=== PATIENT | female | born 1970 | race Caucasian/White ===

== ENCOUNTER → 2017-08-08 | Outpatient (CLI) | payer BC | END | disposition home or self-care (01) | LOC: KCIC MAMMO 16:15 | DX: Z12.31 Encounter for screening mammogram for malignant neoplasm of breast (principal) | CPT/HCPCS: 77067 ==

== ENCOUNTER → 2017-08-18 | Outpatient (CLI) | payer BC | END | disposition home or self-care (01) | LOC: KCIC MAMMO 13:01 | DX: N64.89 Other specified disorders of breast (principal) | CPT/HCPCS: 76641; 77065 ==

== ENCOUNTER → 2018-06-14 | Outpatient (CLI) | payer BC ==
--- NOTE | 2018-06-14 16:48 | KCIC ---
EXAM: Cervical spine MRI without contrast. HISTORY: Neck pain. Headaches. TECHNIQUE: Multiplanar, multisequence magnetic resonance imaging of the cervical spine was performed without contrast. COMPARISON: None. FINDINGS: There is slight straightening of cervical lordosis. There is minimal anterolisthesis of C2 on C3 and C3 on C4 and C4 on C5, within physiologic limits. There is slight endplate remodeling and disc desiccation at the majority of the cervical vertebral levels. There is no acute or subacute fracture. There is no suspicious osseous lesion. No spinal cord lesion is seen. At C2-C3, there is mild left facet arthropathy. There is no stenosis. At C3-C4, there is endplate remodeling. There is mild bilateral facet arthropathy. There is minimal right foraminal stenosis. At C4-C5, there is endplate remodeling. There is mild bilateral facet arthropathy. There is uncovertebral arthropathy. There is minimal right foraminal stenosis. At C5-C6, there is endplate remodeling. There is mild facet arthropathy. There is no stenosis. At C6-C7, there is a minimal posterior central disc protrusion superimposed on endplate remodeling. There is mild bilateral facet arthropathy. There is no stenosis. IMPRESSION:Minimal to mild degenerative change involving the cervical spine, described in detail above. This results in suspected minimal right foraminal stenosis at C3-C4 and C4-C5. Electronically signed by: Taryn Gaines MD (06/14/2018 4:44 PM) [place] [id number]
== END | disposition home or self-care (01) ==
LOC: KCIC MRI 15:48
PROVIDERS: ATTEND Chiropractor
DX: M50.223 Other cervical disc displacement at C6-C7 level (principal); M48.02 Spinal stenosis, cervical region; M47.812 Spondylosis without myelopathy or radiculopathy, cervical region
CPT/HCPCS: 72141

== ENCOUNTER → 2018-09-14 | Outpatient (CLI) | payer BC ==
--- NOTE | 2018-09-14 16:58 | KCIC ---
BILATERAL SCREENING MAMMOGRAM, 3-D History: Routine screening. Comparison: Bilateral mammogram 08/08/2017 and dating back to 2016. Technique: MLO and CC digital tomosynthesis (3D) images obtained. Radiologist reviewed these images on dedicated workstation. Findings: Breast Tissue Density B : There are scattered areas of fibroglandular density. There are no dominant masses, suspicious microcalcifications, or architectural distortion. IMPRESSION: No mammographic evidence of malignancy. Recommend routine screening. BI-RADS category 1: Negative. The images were reviewed with computer-aided detection. Patient information is entered into reminder system with a target due date for the next screening mammogram. Mammography is the most sensitive method for finding small breast cancers, but it does not detect them all and is not a substitute for careful clinical examination. A negative mammogram does not negate a clinically suspicious finding and should not result in delay in biopsying a clinically suspicious abnormality. "Our facility is accredited by the [employer] Mammography [employer]." Electronically signed by: Esau Sanz MD (09/14/2018 4:55 PM) [id number]
== END | disposition home or self-care (01) ==
LOC: KCIC MAMMO 15:43
PROVIDERS: ATTEND Family Medicine
DX: Z12.31 Encounter for screening mammogram for malignant neoplasm of breast (principal)
CPT/HCPCS: 77063; 77067

== ENCOUNTER → 2020-01-09 | Outpatient (CLI) | payer BC ==
--- NOTE | 2020-01-09 17:23 | KCIC ---
Bilateral digital screening mammograms with 3-D tomosynthesis: Reason for examination: Routine screening. Comparison is made to previous studies dated back to 08/03/2016. Bilateral mammograms in CC and oblique projections were obtained with 2-D imaging and 3-D tomosynthesis imaging on a Siemens Inspiration unit and reviewed on the workstation. Interpretation was made with the benefit of CAD. The skin and nipples show no abnormalities. No abnormal axillary lymph nodes are seen. The breast parenchyma is heterogeneously dense. (Breast density: Category C.) There are no dominant masses, suspicious calcifications or architectural distortion. Impression: No evidence of malignancy. Recommend routine screening. Your patient's mammogram demonstrates that she has dense breast tissue (breast density category C or D), which could hide abnormalities, and if she has other risk factors for breast cancer that have been identified, she might benefit from supplemental screening tests that may be suggested by you as her ordering physician. Dense breast tissue, in and of itself, is a relatively common condition. Therefore, this information is not provided to cause undue concern, but rather to raise your awareness and to promote discussion with your patient regarding the presence of other risk factors, in addition to dense breast tissue. Your patient's mammography results will be sent to her. BI-RAD Category 2: Benign. "Our facility is accredited by the [employer] Mammography [employer]." This patient's information has been entered into a reminder system for the patient to be notified with the results of her examination and a target date for the next mammogram. Electronically signed by: Manju Cerna MD (01/09/2020 5:20 PM) [id number]
== END | disposition home or self-care (01) ==
LOC: KCIC MAMMO 15:47
PROVIDERS: ATTEND Nurse Practitioner Family
DX: Z12.31 Encounter for screening mammogram for malignant neoplasm of breast (principal)
CPT/HCPCS: 77063; 77067

== ENCOUNTER → 2021-01-26 | Outpatient (CLI) | payer OTHER ==
--- NOTE | 2021-01-26 20:03 | KCIC ---
Bilateral digital screening mammograms with 3-D tomosynthesis: Reason for examination: Routine screening. Comparison is made to previous studies dated back to 07/29/2015. Bilateral mammograms in CC and oblique projections were obtained with 2-D imaging and 3-D tomosynthes is imaging on a Siemens Inspiration unit and reviewed on the workstation. Interpretation was made wit h the benefit of CAD. The skin and nipples show no abnormalities. No abnormal axillary lymph nodes are seen. The breast par enchyma shows scattered fatty and fibroglandular density. (Breast density: Category B.) There are no dominant masses, suspicious calcifications or architectural distortion. Impression: No evidence of malignancy. Recommend routine screening. BI-RAD Category 1: Negative. "Our facility is accredited by the [employer] Mammography [employer]." This patient's information has been entered into a reminder system for the patient to be notified wit h the results of her examination and a target date for the next mammogram. Electronically signed by: Manju Cerna MD (01/26/2021 8:01 PM) [email or web address]
== END ==
LOC: KCIC MAMMO 15:28
PROVIDERS: ATTEND Family Medicine
DX: Z12.31 Encounter for screening mammogram for malignant neoplasm of breast (principal)
CPT/HCPCS: 77063; 77067